=== PATIENT | female | born 1995 | race Caucasian/White ===

== ENCOUNTER 2018-07-20 23:47 | Inpatient (IN) | payer MEDICAID, SELFPAY ==
[2018-07-21] MEDS ORDERED: Fentanyl 100 MCG/2 ML VIAL ONE ×4 (00:41→10:48)
[2018-07-21] MEDS ORDERED: Ondansetron HCl/PF 4 MG/2 ML Vial ONE ×3 (02:21→15:23)
[2018-07-21] MEDS ORDERED: cefOXitin 2 GM in Sodium Chloride 0.9% 100 ML IVPB SCH (02:30)
[2018-07-21] MEDS ORDERED: Ondansetron ODT 4 MG TAB SL PRN (03:51)
[2018-07-21] MEDS ORDERED: Lactated Ringer's 1,000 ML IV SCH (03:51)
[2018-07-21] MEDS ORDERED: Ondansetron HCl/PF 4 MG/2 ML Vial IVP PRN ×3 (03:51→11:13)
[2018-07-21] MEDS: Fentanyl 100 MCG/2 ML VIAL SLOW IVP PRN ×2 (04:15→06:49)
[2018-07-21 06:34] VITALS: BMI 38.6
--- NOTE | 2018-07-21 08:33 | HP ---
DATE OF ADMISSION: 07/21/2018 CHIEF COMPLAINT: Upper abdominal epigastric pain. HISTORY OF PRESENT ILLNESS: This is a 22-year-old female who presents with epigastric pain in severe , associated with nausea, vomiting for the last 4 days. No previous known history of gallstones, jau ndice, pancreatitis, admitted to my service for acute cholecystitis, elevation of her AST. Denies hi story of chronic abdominal pain, previous complicated by postop infection and another opera tion. Denies heart disease, lung disease, diabetes. She feels better after some IV fluids overnight . PAST MEDICAL HISTORY: None. PAST SURGICAL HISTORY: As above. MEDICINES TAKEN DAILY: None. ALLERGIES: No known drug allergies. SOCIAL HISTORY: No smoking, alcohol or other drugs. REVIEW OF SYSTEMS: Ten system review of systems otherwise negative unless described above. PHYSICAL EXAMINATION: VITAL SIGNS: Blood pressure is 109/70, pulse 62, respirations 18, temperature 98.5. HEENT: Sclerae are anicteric. Oropharynx clear. NECK: No lymphadenopathy. CHEST: Clear. HEART: Regular rate and rhythm. ABDOMEN: Soft, tender epigastric in right upper quadrant, localized guarding, no rebound. LABORATORY DATA: LFTs are normal except for ALT at 88. Creatinine normal at 0.74. White blood cell count 13, hemoglobin 14, platelet count is 255. Ultrasound shows gallstones, common bile duct 0.5 c m. ASSESSMENT: Acute cholecystitis with mild elevation of common bile duct and elevation of liver test. PLAN: Laparoscopic cholecystectomy with intraoperative cholangiogram. Risks, benefits, alternatives discussed. She gives consent. We will do this today.
[2018-07-21] MEDS ORDERED: cefOXitin 2 GM VIAL ONE (09:05)
[2018-07-21] MEDS ORDERED: Sodium Chloride 0.9% 100 ML ONE (09:06)
[2018-07-21] MEDS ORDERED: Iothalamate Meglumine 60% 50 ML VIAL FS ONE (09:09)
[2018-07-21] MEDS ORDERED: Bupivacaine/Epinephrine 0.25% 30 ML VIAL ONE (09:09)
--- NOTE | 2018-07-21 09:36 | ULT ---
RIGHT UPPER QUADRANT ULTRASOUND: HISTORY: Abdominal pain. FINDINGS: The liver, pancreas, and right kidney appear normal. There are shadowing calculi in the gallbladder with gallbladder wall thickening measuring 4 mm. The common duct measures 5 mm in diameter. No free fluid is seen in the Morison's pouch. The wood planer reports a sonographic positive Mason's sign. IMPRESSION: Cholelithiasis with gallbladder wall thickening and sonographically positive Mason's sign. Findings are suspicious for acute cholecystitis. POS: [facility]
[2018-07-21] MEDS ORDERED: Promethazine HCl 25 MG/ML VIAL SLOW IVP PRN (09:49)
[2018-07-21] MEDS ORDERED: Meperidine HCl/PF 25 MG/ML VIAL SLOW IVP PRN (09:49)
[2018-07-21] MEDS ORDERED: Promethazine HCl 25 MG/ML VIAL IM PRN ×2 (09:49→11:13)
--- NOTE | 2018-07-21 11:02 | OP ---
DATE OF PROCEDURE: 07/21/2018 PREOPERATIVE DIAGNOSIS: Acute cholecystitis. POSTOPERATIVE DIAGNOSIS: Acute cholecystitis, question of choledocholithiasis. PROCEDURE PERFORMED: Laparoscopic cholecystectomy with intraoperative cholangiogram. SURGEON: Dr. Naranjo. ANESTHESIA: General. ESTIMATED BLOOD LOSS: Minimal. COMPLICATIONS: None. SPECIMEN: Gallbladder. FINDINGS: There is a small circular nonobstructing distal common bile duct, likely stone, could not pass into the duodenum. TECHNIQUE: The patient was taken to the operating room and placed supine on the table. After genera l anesthetic was obtained, the abdomen was prepped and draped in a sterile fashion. A straight incis ion was made above the umbilicus. Cautery was used to dissect down to and score the fascia. Abdomin al cavity entered bluntly using a Genny clamp. Holding stitch of PDS was placed on each side of the fascia. Azul trocar was placed. High-flow pneumoperitoneum was obtained. Upper midline 5 mm port and two right upper quadrant 5 mm ports were placed under direct visualization. The gallbladder was retracted from the gallbladder fossa. The peritoneum was opened anteriorly and posteriorly. The cr itical view triangle was seen showing only the cystic duct and cystic artery branching from medial to lateral. There were no other branching structures. A clip was placed on the cystic duct and a smal l ductotomy was made just proximal to that. Cholangiocatheter was brought in through a separate stab incision and placed in the cystic duct and a cholangiogram was performed. There is contrast flow in to the duodenum, right and left hepatic duct system. There is a questionable filling defect in the d istal common bile duct that is nonobstructing. It is right at the ampulla. The cholangiocatheter wa s removed. Two clips were placed proximal on the cystic duct and it was cut using laparoscopic sciss ors. Cystic artery was taken using two clips proximally and one clip distally, cut using laparoscopi c scissors. Cautery was used to dissect the gallbladder out of the gallbladder fossa. Gallbladder w as placed in an Endo catch bag and brought out through the Azul. All port sites were infiltrated u sing local anesthetic. All ports were removed under camera visualization. Pneumoperitoneum was let down. PDS was used to close the fascial defect above the umbilicus. All incisions were irrigated an d closed using 4-0 Monocryl and Dermabond. The patient went to recovery in stable condition. All in strument counts, needle counts, lap counts were correct.
[2018-07-21] MEDS ORDERED: HYDROcodone/Acetaminophen 10/325 mg Tablet PO PRN (11:13)
[2018-07-21] MEDS ORDERED: Dextrose 50% Abboject 50 ML SYRINGE SLOW IVP PRN (11:13)
[2018-07-21] MEDS ORDERED: Morphine 4 MG/ML VIAL SLOW IVP PRN (11:13)
[2018-07-21] MEDS ORDERED: Dextrose 5% in Water 1,000 ML IV PRN (11:13)
[2018-07-21] MEDS ORDERED: Mag-Al 1200 mg/1200 mg/30 ML UDCUP PO PRN (11:13)
[2018-07-21] MEDS ORDERED: hydrALAZINE 20 MG/ML VIAL SLOW IVP PRN (11:13)
[2018-07-21] MEDS: Sodium Chloride 0.9% 1,000 ML IV SCH ×3 (11:36→21:39)
--- NOTE | 2018-07-21 12:01 | RAD ---
OPERATIVE CHOLANGIOGRAM: Three images presented from the OR during cholecystectomy procedure. INDICATION: Intraoperative cholangiogram during cholecystectomy procedure. FINDINGS: A filling defect is seen in the lower common duct near the ampulla consistent with retained stones or debris. There are also rounded filling defects in the hepatic radicals to the right which could represent air bubbles or calculi. POS: [facility]
[2018-07-21] MEDS: Calcium Carbonate 500 MG ChewTAB PO PRN (12:15)
[2018-07-21] MEDS: HYDROcodone/Acetaminophen 10/325 mg Tablet PO PRN ×2 (12:15→18:18)
[2018-07-21] MEDS ORDERED: Dexamethasone 20 MG/5 ML VIAL ONE (15:23)
[2018-07-21] MEDS ORDERED: Ketorolac Tromethamine 30 MG/ML VIAL ONE (15:23)
[2018-07-21] MEDS ORDERED: PROPOFOL 200 MG/20 ML VIAL ONE (15:23)
[2018-07-21] MEDS ORDERED: Glycopyrrolate 0.2 MG/ML 5 ML SYRINGE ONE (15:23)
[2018-07-21] MEDS ORDERED: Lidocaine 1% PF 5 ML VIAL ONE (15:23)
[2018-07-21] MEDS: Ketorolac Tromethamine 30 MG/ML VIAL IVP PRN ×2 (16:44→22:57)
[2018-07-21] MEDS: Famotidine 20 MG TAB PO SCH (20:33)
[2018-07-21] MEDS: Famotidine/PF 20 mg/2ml Vial SLOW IVP SCH (21:38)
[2018-07-22] MEDS: Calcium Carbonate 500 MG ChewTAB PO PRN (03:26)
[2018-07-22] MEDS: HYDROcodone/Acetaminophen 10/325 mg Tablet PO PRN (03:27)
[2018-07-22] MEDS: Famotidine/PF 20 mg/2ml Vial SLOW IVP SCH ×2 (08:13→20:46)
[2018-07-22 08:57] LABS: ALT (SGPT) 60 U/L (8-55); AST (SGOT) 19 U/L (5-34); Albumin 3.4 g/dL (3.5-5.0); Alkaline Phosphatase 44 U/L (40-150); Anion Gap 14 mmol/L (10-20); BUN (Urea Nitrogen) 9 mg/dL (7.0-18.7); Bilirubin, Total 0.4 mg/dL (0.2-1.2); Calc. Creatinine Clearance 188 mL/min (70-130); Calcium 8.5 mg/dL (7.8-10.44); Carbon Dioxide 23 mmol/L (22-29); Chloride 106 mmol/L (98-107); Estimated GFR-MDRD Greater than 90; Globulin 2.8 g/dL (2.4-3.5); Glucose 91 mg/dL (70-105); Lipase 10 U/L (8-78); Potassium 3.7 mmol/L (3.5-5.1); Protein, Total 6.2 g/dL (6.0-8.3); Sodium 139 mmol/L (136-145)
[2018-07-22] MEDS: Famotidine 20 MG TAB PO SCH ×2 (08:57→20:45)
--- NOTE | 2018-07-22 09:12 | PDOC.GSPN ---
Surgery Progress Note: Subj - Subjective Patient reports: no new complaints Surgery Progress Note: Obj - Vital signs Vital signs: Vital Signs - Most Recent Temp Pulse Resp BP Pulse Ox 98.2 F 83 18 105/70 93 L 07/22/18 08:20 07/22/18 08:20 07/22/18 08:20 07/22/18 08:20 07/22/18 08:20 - Physical Exam General: no distress Respiratory: clear to auscultation Abdomen: soft, appropriately tender Wound: healing well Surgery Progress Note: Results - Labs Result Diagrams: 07/22/18 08:23 Lab results: Laboratory Results - last 24 hr 07/22/18 08:23 Sodium 139 Potassium 3.7 Chloride 106 Carbon Dioxide 23 Anion Gap 14 BUN 9 Creatinine 0.75 Estimated GFR (MDRD) Greater than 90 Glucose 91 Calcium 8.5 Total Bilirubin 0.4 AST 19 ALT 60 H Alkaline Phosphatase 44 Serum Total Protein 6.2 Albumin 3.4 L Globulin 2.8 Albumin/Globulin Ratio 1.2 Lipase 10 Surgery Progress Note: A/P - Problem (1) Choledocholithiasis Current Visit: Yes Code(s): K80.50 - CALCULUS OF BILE DUCT W/O CHOLANGITIS OR CHOLECYST W/O OBST Status: Acute - Plan Plan: ERCP today. -resume diet after
--- NOTE | 2018-07-22 11:27 | CON ---
DATE OF CONSULTATION: 07/22/2018 REASON FOR CONSULTATION: Possible choledocholithiasis. HISTORY OF PRESENT ILLNESS: Ms. Jones is a 22-year-old female who was admitted to the hospital on with upper abdominal pain with ultrasound showing gallstones. She had nausea going on for 4 days and had no prior history of similar symptoms like this in the past. She was admitted for acute cholecystitis and with a mild elevation of AST. She underwent a laparoscopic cholecystectomy yesterd ay and had IOC with some questionable filling defect in the distal duct. She still has a mildly elev ated AST. Dr. Naranjo asked me to see her with regard to possible ERCP. PAST MEDICAL HISTORY: None. PAST SURGICAL HISTORY: As above with previous complicated by postop infection at an outsid e facility. HOME MEDICATIONS: None. ALLERGIES: None. SOCIAL HISTORY: No smoking, drugs or alcohol. REVIEW OF SYSTEMS: Ten-point review of systems otherwise negative. MEDICATIONS HERE IN THE HOSPITAL: Hydrocodone, albuterol, Tums, Pepcid, glucagon, Apresoline, [place] l p.r.n. for pain, morphine p.r.n. for pain, Zofran p.r.n. for pain, normal saline 125 an hour. PHYSICAL EXAMINATION: GENERAL: Patient is resting in bed. VITAL SIGNS: Temperature 98.2, pulse 83, blood pressure 105/70. LUNGS: Clear. CARDIOVASCULAR: Heart regular, without clicks or murmurs. ABDOMEN: Protuberant, but nontender. LABORATORY AND X-RAY FINDINGS: Today, ALT is 60, AST is normal. Bilirubin is normal, alkaline phosp hatase is normal. White count 13.4, ____ 14.2 on admission and platelet count was 255 on admission. Lipase is 10. test was negative. Images of the IOC reviewed. Ultrasound on admission showed cholelithiasis, gallbladder wall thickeni ng, positive Mason sign. ASSESSMENT: 1. Cholecystitis, status post laparoscopic cholecystectomy. 2. Positive IOC with mild elevated ALT concerning for choledocholithiasis. I have explained the risks of choledocholithiasis, possible complications including cholangitis and p ancreatitis, possibly the stone could pass on its own with only minimal symptoms or no symptoms or se emy illness. I recommended removal of the stone and ERCP in light of the persistently elevated ALT. Risks, benefits, and possible complications of procedure were discussed with the patient including perforation, bleeding, reaction to medication, aspiration and pancreatitis. A picture was drawn to s how the mom and patient the anatomy. She wished to proceed. We will proceed today with either myself or Dr. Km Lewis.
[2018-07-22] MEDS ORDERED: Ondansetron HCl/PF 4 MG/2 ML Vial ONE (11:58)
[2018-07-22] MEDS: Sodium Chloride 0.9% 1,000 ML IV SCH ×2 (15:12→20:45)
[2018-07-22] MEDS ORDERED: Indomethacin 50 MG SUPP ONE (15:13)
[2018-07-22] MEDS ORDERED: Iothalamate Meglumine 60% 50 ML VIAL FS ONE (15:14)
[2018-07-22] MEDS ORDERED: Fentanyl 100 MCG/2 ML VIAL ONE (15:27)
[2018-07-22] MEDS ORDERED: Sodium Chloride For Inhalation 0.9% 3 ML NEB ONE (16:56)
[2018-07-22] MEDS ORDERED: Promethazine HCl 25 MG/ML VIAL IM PRN (16:57)
[2018-07-22] MEDS ORDERED: HYDROmorphone 2 MG/ML VIAL SLOW IVP PRN (16:57)
[2018-07-22] MEDS ORDERED: Meperidine HCl/PF 25 MG/ML VIAL SLOW IVP PRN (16:57)
[2018-07-22] MEDS ORDERED: Promethazine HCl 25 MG/ML VIAL SLOW IVP PRN (16:57)
[2018-07-22] MEDS ORDERED: Promethazine HCl 25 MG/ML VIAL ONE (17:05)
[2018-07-22] MEDS: Ketorolac Tromethamine 30 MG/ML VIAL IVP PRN (20:52)
--- NOTE | 2018-07-23 01:22 | OP ---
PREOPERATIVE DIAGNOSIS: Abnormal intraoperative cholangiogram. PROCEDURE IN DETAIL: After informed consent was obtained, the patient was placed in the left lateral decubitus position. Anesthesia was administered per the Anesthesia department. Side-viewing endosc ope was inserted into the esophagus under direct visualization with ease and passed to the second por tion of the duodenum with ease. Second portion of the duodenum was normal. No mucosal abnormalities were noted. The ampullary orifice was in a small periampullary diverticulum. A tapered-tip cholang iogram revealed some small filling defects. A sphincterotomy was performed and the duct was swept wi th a 9-12 mm balloon revealing some sludge, no overt stones were noted. occlusion cholangiogra m showed no filling defects. A few bubbles were noted. ASSESSMENT: 1. Choledocholithiasis. 2. Status post sphincterotomy and stone extraction. RECOMMENDATIONS: Repeat LFTs.
[2018-07-23] MEDS: Sodium Chloride 0.9% 1,000 ML IV SCH (03:24)
[2018-07-23 06:18] LABS: ALT (SGPT) 44 U/L (8-55); AST (SGOT) 11 U/L (5-34); Albumin 3.2 g/dL (3.5-5.0); Alkaline Phosphatase 42 U/L (40-150); Bilirubin, Direct 0.1 mg/dL (0.1-0.3); Bilirubin, Total 0.2 mg/dL (0.2-1.2); Protein, Total 5.9 g/dL (6.0-8.3)
[2018-07-23] MEDS: Famotidine 20 MG TAB PO SCH (08:12)
[2018-07-23 09:23] VITALS: BP 121/74; TEMP 98.2
--- NOTE | 2018-07-23 18:05 | DIS ---
DATE OF ADMISSION: 07/21/2018 DATE OF DISCHARGE: 07/23/2018 ADMIT DIAGNOSIS: Acute cholecystitis with choledocholithiasis. DISCHARGE DIAGNOSIS: Acute cholecystitis with choledocholithiasis. PROCEDURES: 1. Laparoscopic cholecystectomy with intraoperative cholangiogram by Dr. Naranjo without complicatio n. 2. ERCP by Dr. Lewis without complication. CONDITION AT DISCHARGE: Improved. STAFF: Dr. Sylvain Naranjo. HOSPITAL COURSE: On hospital day #2, the patient is doing well. She had stone extraction by Dr. Stacie perrin. No pain, tolerating regular food. Prescriptions given for Amelia, Zofran. She is discharged home to follow up with me in 2 weeks.
== END 2018-07-23 08:35 | disposition home or self-care (01) | DRG 419 ==
LOC: ERS 23:47 → SURG B 07-21 03:23
PROVIDERS: ADMIT Surgery; ATTEND Surgery
PROC: 0FT44ZZ Resection of Gallbladder, Percutaneous Endoscopic Approach (ICD-10-PCS; principal; 2018-07-23)
PROC: BF101ZZ Fluoroscopy of Bile Ducts using Low Osmolar Contrast (ICD-10-PCS; 2018-07-23)
PROC: 0F798ZZ Dilation of Common Bile Duct, Via Natural or Artificial Opening Endoscopic (ICD-10-PCS; 2018-07-23)
DX: K80.42 Calculus of bile duct with acute cholecystitis without obstruction (principal)
CPT/HCPCS: 36415; 47532; 74330; 76705; 80053; 80076; 83690; 88304; 94640; 96361; 96374; 96375; 96376; J0694; J1100; J1610; J1885; J2001; J2270; J2405; J2550; J2704; J3010; J7050; J7620; Q0162; Q9961; S0028